=== PATIENT | female | born 1980 | race Asian ===

== ENCOUNTER 2018-08-05 06:12 | Day surgery (SDC) | payer MEDICAID ==
[2018-08-03 11:03] LABS: BASOPHILS % (AUTO) 0.4 % (0-1); EOSINOPHILS # (AUTO) 0.1 X10'3 (0-0.9); EOSINOPHILS % (AUTO) 2.3 % (0-6); LYMPHOCYTES # (AUTO) 1.9 X10'3 (1.1-4.8); LYMPHOCYTES % (AUTO) 29.6 % (21-51); MEAN CORPUSCULAR HEMOGLOBIN 24.9 PG (27.0-31.0); MEAN CORPUSCULAR HGB CONC 32.6 % (33.0-36.5); MEAN CORPUSCULAR VOLUME 76.4 FL (78-98); MEAN PLATELET VOLUME 8.5 FL (7.4-10.4); MONOCYTES # (AUTO) 0.4 X10'3 (0-0.9); MONOCYTES % (AUTO) 5.9 % (2-12); NEUTROPHILS % (AUTO) 61.8 % (42-75); PRE OP HEMATOCRIT 35.9 % (35.0-45.0); PRE OP HEMOGLOBIN 11.7 g/dL (12.0-16.0); PRE OP PLATELET COUNT 294 X10'3 (140-440); RED CELL DISTRIBUTION WIDTH 15.2 % (11.5-14.5)
[2018-08-03 11:04] LABS: CLARITY,URINE SLIGHTLY CLOUDY (Clear); COLOR,URINE YELLOW (Yellow); GLUCOSE, URINE NEGATIVE (Neg); KETONES,URINE NEGATIVE (Neg); LEUKOCYTE ESTERASE ,URINE TRACE (Neg); NITRITES, URINE NEGATIVE (Neg); OCCULT BLOOD,URINE TRACE-INTACT (Neg); PROTEIN,URINE NEGATIVE (Neg); UROBILINOGEN,URINE 0.2 E.U/dL (0.2-1.0)
[2018-08-03 11:06] LABS: UA COLLECTION TYPE CLN CATCH MIDSTREAM
[2018-08-03 11:16] LABS: BACTERIA,URINE 1+ /HPF (Neg); RBC,URINE 0-2 /HPF (0-2); SQUAMOUS EPITHELIAL CELL,UR MODERATE /LPF (FEW); WBC,URINE 0-4 /HPF (0-4)
[2018-08-03 11:21] LABS: ALBUMIN 2.6 G/DL (3.4-5.0); ALBUMIN/GLOBULIN RATIO 0.5 (1.1-1.5); ALKALINE PHOSPHATASE 99 IU/L (46-116); BLOOD UREA NITROGEN 9 MG/DL (7-18); BUN/CREATININE RATIO 11.5 (6.6-38.0); CALCIUM 8.2 MG/DL (8.5-10.1); CHLORIDE 104 MMOL/L (99-107); CREATININE 0.78 MG/DL (0.40-0.90); PRE OP ALT 30 U/L (30-65); PRE OP ANION GAP 8 (8-16); PRE OP AST 16 U/L (10-37); PRE OP BILIRUB, TOTAL 0.2 MG/DL (0.0-1.0); PRE OP GLUCOSE 98 MG/DL (70-104); PRE OP POTASSIUM 4.3 MMOL/L (3.4-5.1); PRE OP SODIUM 137 MMOL/L (135-145); TOTAL CARBON DIOXIDE 24.7 MMOL/L (24-32); TOTAL PROTEIN 7.5 G/DL (6.4-8.2); eGFR 83 ML/MIN
[2018-08-03 11:28] LABS: HCG SERUM QL NEGATIVE
[~2018-08-05] VITALS: Ht 162.6 cm; Wt 72.4 kg
[2018-08-05] VITALS (9 sets, daily range): BP systolic 100–134; BP diastolic 58–94
[~2018-08-05 06:12] MED LIST: NO HOME MEDS; famotidine 20mg tablet PO ONE; ringers solution, lacted 1,000 ML IV SCH
[2018-08-05] MEDS ORDERED: BUPIVAcaine/PF 2.5mg/ml (0.25%) 10ml vial ONE (06:42)
[2018-08-05] MEDS ORDERED: ceFAZolin 1000mg inj ONE (06:42)
[2018-08-05] MEDS ORDERED: sevoflurane 250ml liquid IH ONE (08:10)
[2018-08-05] MEDS ORDERED: ketorolac trometh. 30mg/ml inj. ONE (08:10)
[2018-08-05] MEDS ORDERED: fentaNYL/PF 50MCG/1 ML 2ML syringe ONE (08:20)
[2018-08-05] MEDS ORDERED: midazolam 2 mg/2 ml injection ONE (08:20)
[2018-08-05] MEDS ORDERED: propofol inj 20 ML IV ONE (08:21)
[2018-08-05] MEDS ORDERED: rocuronium 10mg/ml inj IV ONE (08:21)
[2018-08-05] MEDS ORDERED: ceFOXitin 1000 MG inj ONE (08:28)
[2018-08-05] MEDS ORDERED: ondansetron/PF 4mg/2ml inj ONE (08:29)
[2018-08-05] MEDS ORDERED: dexamethasone sod phosphate 4mg/ml inj. ONE (08:29)
[2018-08-05] MEDS ORDERED: ringers solution, lacted 1,000 ML IV SCH (08:49)
[2018-08-05] MEDS ORDERED: proCHLORperazine 10 MG/2 ml inj IV PRN (08:50)
[2018-08-05] MEDS ORDERED: morphine 4 MG/ML inj SYRINge IV PRN ×2 (08:50)
[2018-08-05] MEDS ORDERED: meperidine/PF 25mg/ml syringe IV PRN ×2 (08:50)
[2018-08-05] MEDS ORDERED: ondansetron/PF 4mg/2ml inj IV PRN (08:50)
[2018-08-05] MEDS ORDERED: neostigmine methylsulfate 1 MG/ML 10ml vial ONE (09:12)
[2018-08-05] MEDS ORDERED: glycopyrrolate 0.2mg/ml inj ONE (09:12)
[2018-08-05] MEDS: meperidine/PF 25mg/ml syringe IV PRN ×2 (09:50→10:06)
[2018-08-05] MEDS ORDERED: acetaminophen 1,000mg/100ml IV 100 ML IV SCH ×2 (09:55→09:57)
== END 2018-08-05 10:42 | disposition home or self-care (01) ==
LOC: PAS 06:12
PROVIDERS: ATTEND Surgery
DX: K80.12 Calculus of gallbladder with acute and chronic cholecystitis without obstruction (principal)
CPT/HCPCS: 36415; 47562; 80053; 81001; 84703; 85025; 87088; J0131; J0690; J0694; J1100; J1885; J2175; J2250; J2405; J2704; J2710; J3010; J3490; J7120; A7000

== ENCOUNTER 2019-02-09 23:08 | Emergency (ER) | payer MEDICAID ==
[~2019-02-09] VITALS: Ht 162.6 cm; Wt 74.0 kg
[~2019-02-09 23:08] MED LIST changes: -famotidine 20mg tablet PO ONE; -ringers solution, lacted 1,000 ML IV SCH
[2019-02-09 23:12] VITALS: BP 104/65
[2019-02-10] MEDS ORDERED: IBUP-1984 PO (00:43)
== END 2019-02-10 00:56 | disposition home or self-care (01) ==
LOC: ER 23:08
DX: G89.29 Other chronic pain (principal); R51 Headache; Z79.899 Other long term (current) drug therapy
CPT/HCPCS: 99282

== ENCOUNTER 2020-10-09 12:33 | Emergency (ER) | payer MEDICAID, OTHER ==
[~2020-10-09] VITALS: Ht 165.1 cm; Wt 75.0 kg
[2020-10-09 12:46] VITALS: BP 115/78
[2020-10-09] MEDS ORDERED: ketorolac trometh inj. 60 MG/2 ML VIAL IM ONE (13:15)
[2020-10-09] MEDS ORDERED: ibuprofen tablet 400 MG TABLET PO ONE (14:15)
[2020-10-09] MEDS ORDERED: CYCL-1 PO (14:25)
[2020-10-09] MEDS ORDERED: ACET-3067 PO (14:25)
== END 2020-10-09 14:45 | disposition home or self-care (01) ==
LOC: ER 12:34
DX: S16.1XXA Strain of muscle, fascia and tendon at neck level, initial encounter (principal); S09.90XA Unspecified injury of head, initial encounter; M54.5 Low back pain; M25.561 Pain in right knee; M25.562 Pain in left knee; V87.7XXA Person injured in collision between other specified motor vehicles (traffic), initial encounter; Y93.89 Activity, other specified; Y92.89 Other specified places as the place of occurrence of the external cause; Y99.8 Other external cause status
CPT/HCPCS: 70450; 72125; 99285

== ENCOUNTER 2021-07-13 09:38 | Emergency (ER) | payer MEDICAID ==
[~2021-07-13] VITALS: Ht 162.6 cm; Wt 74.9 kg
[~2021-07-13 09:38] MED LIST changes: +CYCL-1 PO
[2021-07-13 11:33] VITALS: BP 106/46
[2021-07-13 12:20] LABS: BASOPHILS % (AUTO) 0.5 % (0-1); EOSINOPHILS # (AUTO) 0.1 X10'3 (0-0.9); EOSINOPHILS % (AUTO) 1.5 % (0-6); HEMATOCRIT 38.2 % (35.0-45.0); HEMOGLOBIN 12.4 g/dl (12.0-16.0); LYMPHOCYTES # (AUTO) 2.1 X10'3 (1.1-4.8); LYMPHOCYTES % (AUTO) 29.5 % (21-51); MEAN CORPUSCULAR HEMOGLOBIN 25.4 PG (27.0-31.0); MEAN CORPUSCULAR HGB CONC 32.5 g/dL (33.0-36.5); MEAN CORPUSCULAR VOLUME 78.1 FL (78-98); MONOCYTES # (AUTO) 0.5 X10'3 (0-0.9); MONOCYTES % (AUTO) 6.5 % (2-12); NEUTROPHILS # (AUTO) 4.5 X10'3 (1.8-7.7); PLATELET COUNT 329 X10'3 (140-440); RED BLOOD COUNT 4.89 X10'6 (4.20-5.60); RED CELL DISTRIBUTION WIDTH 15.9 % (11.5-14.5); WHITE BLOOD COUNT 7.3 X10'3 (4.5-11.0)
[2021-07-13 12:27] LABS: ALANINE AMINOTRANSFERASE 35 U/L (12-78); ALBUMIN 3.7 G/DL (3.4-5.0); ALBUMIN/GLOBULIN RATIO 0.9 (1.1-1.5); ALKALINE PHOSPHATASE 92 IU/L (46-116); ANION GAP 9 (8-16); ASPARTATE AMINO TRANSFERASE 20 U/L (10-37); BILIRUBIN,TOTAL 0.3 MG/DL (0.1-1.0); BLOOD UREA NITROGEN 8 MG/DL (7-18); CALCIUM 8.5 MG/DL (8.5-10.1); CHLORIDE 105 MMOL/L (99-107); GLUCOSE 92 MG/DL (70-104); POTASSIUM 4.2 MMOL/L (3.5-5.1); SODIUM 141 MMOL/L (135-145); TOTAL PROTEIN 7.7 G/DL (6.4-8.2); eGFR 80 ML/MIN
[2021-07-13] MEDS ORDERED: ALBU8HFA PO (17:09)
== END 2021-07-13 17:13 | disposition left against medical advice (07) ==
LOC: ER 09:39
DX: R06.02 Shortness of breath (principal); R07.89 Other chest pain; Z79.899 Other long term (current) drug therapy
CPT/HCPCS: 36415; 71045; 80053; 84484; 85025; 93005; 99285

== ENCOUNTER 2022-09-23 08:53 | Outpatient (CLI) | payer MEDICAID | END 2022-09-23 23:59 | disposition home or self-care (01) | LOC: RT 08:53 | PROVIDERS: ATTEND Nurse Practitioner Family | DX: R06.02 Shortness of breath (principal) | CPT/HCPCS: 94010 ==